=== PATIENT | male | born 1950 | race Caucasian/White ===

== ENCOUNTER → 2018-11-02 | Outpatient (CLI) | payer MEDICARE ==
--- NOTE | 2018-11-02 14:18 | CARD ---
MR#: [id number] Date of Study: 11/02/2018 Ordering Physician: REGINA AGUIRRE, Referring Physician: REGINA AGUIRRE, Tech: Esperanza Macdonald [facility] APPROVED REPORT EXAM: Two-dimensional and M-mode echocardiogram with Doppler and color Doppler. Other Information Quality : AverageHR: 80bpm Rhythm : NSRTechnically limited study due to body habitus. INDICATION PE 2D DIMENSIONS RVDd3.0 (2.9-3.5cm)Left Atrium(2D)3.9 (1.6-4.0cm) IVSd1.5 (0.7-1.1cm)Aortic Root(2D)3.2 (2.0-3.7cm) LVDd4.9 (3.9-5.9cm)LVOT Diameter2.1 (1.8-2.4cm) PWd1.1 (0.7-1.1cm)LVDs2.8 (2.5-4.0cm) FS (%) 43.7 %SV84.6 ml LVEF(%)74.8 (>50%) M-Mode DIMENSIONS Left Atrium(MM)4.50 (2.5-4.0cm)Aortic Root3.61 (2.2-3.7cm) Aortic Valve AoV Peak Nick.144.3cm/sAoV VTI27.7cm AO Peak GR.8.3mmHgLVOT Peak Nick.140.9cm/s LVOT VTI 30.27cmAO Mean GR.5mmHg RUBEN (VMAX)3.53am5BWD (VTI)3.76cm2 Mitral Valve MV E Bkvgxtho81.5cm/sMV DECEL [id number] MV A Khidmngu872.4cm/sE/A Ratio0.7 Pulmonary Valve PV Peak Qrwysorb210.3cm/sPV Peak Grad.7mmHg Tricuspid Valve TR P. Pdnxrwhi822jm/sRAP [id number] TR Peak Gr.34jhArEYTU19ubJp Pulmonary Vein S1 Oswkbfjy07.1cm/sD2 Ghohcuvm74.7cm/s LEFT VENTRICLE The left ventricle is normal size. Proximal septal thickening is noted. The left ventricular systolic function is normal and the ejection fraction is within normal range. The Ejection Fraction is 65-70% . There is grossly normal LV segmental wall motion. Limited images Transmitral Doppler flow pattern i s Grade I-abnormal relaxation pattern. RIGHT VENTRICLE The right ventricle is normal size. There is normal right ventricular wall thickness. The right ventr icular systolic function is normal. ATRIA The left atrium is borderline dilated. The right atrium size is normal. The interatrial septum is int act with no evidence for an atrial septal defect or patent foramen ovale as noted on 2-D or Doppler i maging. AORTIC VALVE The aortic valve is probably trileaflet. The aortic valve is mildly calcified. Doppler and Color Flow revealed no significant aortic regurgitation. There is no significant aortic valvular stenosis. Ther e is no aortic valvular vegetation. MITRAL VALVE The mitral valve is calcified but opens well. There is no evidence of mitral valve prolapse. There is no mitral valve stenosis. Doppler and Color-flow revealed trace mitral regurgitation. TRICUSPID VALVE The tricuspid valve is normal in structure and function. Doppler and Color Flow revealed trace to mil d tricuspid regurgitation. There is mild pulmonary hypertension. The PA pressure was estimated at 37 mmHg. There is no tricuspid valve prolapse or vegetation. There is no tricuspid valve stenosis. PULMONIC VALVE Doppler and Color Flow revealed no pulmonic valvular regurgitation. There is no pulmonic valvular james nosis. GREAT VESSELS The aortic root is normal in size. The ascending aorta is normal in size. The IVC is normal in size a nd collapses >50% with inspiration. PERICARDIAL EFFUSION There is no evidence of significant pericardial effusion. Critical Notification Critical Value: No <Conclusion> The left ventricular systolic function is normal and the ejection fraction is within normal range. Th e Ejection Fraction is 65-70%. There is grossly normal LV segmental wall motion. Limited images Doppler and Color Flow revealed trace to mild tricuspid regurgitation. There is mild pulmonary hypert ension. The PA pressure was estimated at 37 mmHg. Signed by : Regina Augirre, Electronically Approved : 11/02/2018 14:18:00
== END | disposition home or self-care (01) ==
LOC: ECHO 12:59
PROVIDERS: ATTEND Internal Medicine Cardiovascular Disease
DX: I27.20 Pulmonary hypertension, unspecified (principal); I70.0 Atherosclerosis of aorta; I26.99 Other pulmonary embolism without acute cor pulmonale
CPT/HCPCS: 93306